=== PATIENT | male | born 1950 | race Caucasian/White ===

== ENCOUNTER 2024-05-04 07:29 | Observation (INO) ==
[~2024-05-04 07:29] MED LIST: Metoclopramide 5 MG/ML VIAL (10 mg) IV PRN; NS 0.45% 1000 ml BAG 1,000 ML IV SCH; Naloxone 0.4 mg VIAL 0.4 mg/ml 1 ml VIAL IV PRN; Ondansetron 4 mg VIAL 2 MG/ML 2 ml VIAL IV PRN; fentaNYL 100 mcg/2 ml 50 MCG/ML VIAL IV PRN
[2024-05-04] MEDS ORDERED: Famotidine IV 10 MG/ML 2 ml VIAL (20 mg) ONE (07:50)
[2024-05-04] MEDS ORDERED: Ondansetron 4 mg VIAL 2 MG/ML 2 ml VIAL ONE (07:54)
[2024-05-04] MEDS ORDERED: Lidocaine 2% PF 5 ML VIAL ONE (07:54)
[2024-05-04] MEDS ORDERED: fentaNYL 100 mcg/2 ml 50 MCG/ML VIAL ONE ×2 (07:54→10:21)
[2024-05-04] MEDS ORDERED: Propofol 10 MG/ML 20 ML BTL ONE ×2 (07:54→10:07)
[2024-05-04] MEDS ORDERED: Dexamethasone IV 4 MG/ML VIAL 1 ml VIAL ONE (07:54)
[2024-05-04] MEDS: Famotidine IV 10 MG/ML 2 ml VIAL (20 mg) IV SLOW PU ONE (07:59)
[2024-05-04 08:23] LABS: Rapid COVID-19 Molecular Undetected (Undetected)
[2024-05-04] MEDS ORDERED: Glycopyrrolate IV 0.2 MG/ML 1 ML VIAL ONE ×3 (08:50→09:54)
[2024-05-04] MEDS ORDERED: Ondansetron 4 mg VIAL 2 MG/ML 2 ml VIAL IV PRN (09:01)
[2024-05-04] MEDS ORDERED: Furosemide 20 mg/2 ml IV VIAL ONE (10:12)
[2024-05-04] MEDS: NS 0.9% 1000 ml BAG 1,000 ML IV SCH (13:14)
[2024-05-04] MEDS: Neomycin/Polym/Bacit TOP OINT 15 GM TOPICAL SCH (15:25)
[2024-05-04] MEDS: Acetaminophen IV 1 GM/100ML 1,000 MG/100 ML BAG IV ONE (16:54)
[2024-05-04] MEDS: Buffered Lidocaine 1% SYRIN 1 ml INTRADERM ONE (16:54)
[2024-05-04] MEDS: Ampicillin ADVAN 2 GM in NS 0.9% 100 ML 100 ML IVPB ONE (16:55)
[2024-05-04] MEDS: Gentamicin ADULT 410 MG in NS 0.9% 100 ml BAG 100 ML IVPB ONE (16:56)
[2024-05-04] MEDS: Magnesium Hydroxide LIQ 30 ML UDC PO SCH (21:34)
[2024-05-04] MEDS: Lactated Ringers 1000 ml BAG 1,000 ML IV SCH (23:34)
[2024-05-04] MEDS: Scopolamine 1 mg/72hr PATCH TRANSDERM ONE (23:35)
[2024-05-05 10:37] VITALS: BP 126/58
== END 2024-05-05 12:15 | disposition home or self-care (01) ==
LOC: SSU 07:29 → OR 07:29
PROVIDERS: ADMIT Urology; ATTEND Urology

== ENCOUNTER 2024-05-10 16:52 | Observation (INO) ==
[2024-05-10] MEDS: LACTATED RINGERS IV ONE (17:14)
[2024-05-10 17:18] LABS: ABS Lymphocytes 0.8 10^3/uL (1.0-4.8); ABS Neutrophils 14.7 10^3/uL (1.5-7.6); Eosinophil % 0.2 %; Hematocrit 43.5 % (38-53); Hemoglobin 14.9 g/dL (13.2-16.3); Lymphocyte % 4.6 %; Mean Corpuscular Hgb Conc 34.2 g/dL (31-36); Mean Corpuscular Volume 99.4 fL (80-97); Mean Platelet Volume 9.4 fL (7.5-11.2); Platelet Count 205 10^3/uL (150-450); Red Blood Count 4.38 10^6/uL (4.06-5.63); White Blood Count 16.5 10^3/uL (3.6-10.2)
[2024-05-10] MEDS: cefTRIAXone 1 gm/50 mL D5W 1 GM/50 ML BAG IV ONE (17:32)
[2024-05-10 17:33] LABS: Activated Partial Thrombo Time 29.5 seconds (26.0-38.0); INR 1.13 (0.85-1.14)
[2024-05-10] MEDS: Ondansetron 4 mg VIAL 2 MG/ML 2 ml VIAL IV ONE (17:41)
[2024-05-10 17:54] LABS: Albumin 3.9 g/dL (3.2-5.2); Albumin/Globulin Ratio 1.5 (1-3); C Reactive Protein 64.41 mg/L (<8.01); Calcium 10.1 mg/dL (8.6-10.3); Creatinine, Serum 1.47 mg/dL (0.67-1.17); Globulin 2.6 g/dL (2-4); Potassium 4.3 mmol/L (3.5-5.0); Total Protein 6.5 g/dL (6.4-8.9); eGFR CKD-EPI 49.7 (>60)
[2024-05-10 19:10] LABS: Urine Appearance Turbid; Urine Bilirubin Negative (Negative); Urine Blood 3+ (Negative); Urine Color Yellow; Urine Glucose Negative (Negative); Urine Ketones Negative (Negative); Urine Nitrite Negative (Negative); Urine Protein 2+ (>=100 mg/dL) (Negative); Urine Specific Gravity 1.022 (1.002-1.030); Urine Urobilinogen Negative (Negative); Urine pH 6.5 (5.0-8.0)
[2024-05-10 19:19] LABS: Urine Bacteria Absent /HPF (Absent); Urine Red Blood Cell 3+(>10/hpf) /HPF (0-Trace); Urine White Blood Cell 3+(>20/hpf) /HPF (0-Trace)
[2024-05-10 19:28] LABS: High Sensitivity Troponin 1 Hr 13 pg/mL (<20)
[2024-05-10] MEDS: Iodixanol 320 (CONTRAST) 100 ML SDV IV ONE (20:26)
[2024-05-11] MEDS: Albuterol/Ipratropium NEB.SOL (2.5/0.5 MG) 3 ML NEB.SOLN INH ONE (00:15)
[2024-05-11] MEDS ORDERED: Vancomycin per Pharmacy 1 EA NOTE FOLLOW UP SCH (01:00)
[2024-05-11] MEDS ORDERED: Zosyn per Pharmacy NOTE FOLLOW UP SCH (01:00)
[2024-05-11] MEDS: ZOSYN 3.375 GM x ONE DOSE over 30 miuntes IV (01:10)
[2024-05-11] MEDS: Vancomycin 1,500 MG in NS 0.9% 250 ml 250 ML IVPB ONE (03:10)
[2024-05-11] MEDS: ZOSYN 3.375 GM Q8H per EXTENDED INFUSION IV SCH ×2 (05:36→12:42)
[2024-05-11 06:13] LABS: ABS Basophils 0.1 10^3/uL (0.0-0.1); ABS Eosinophils 0.1 10^3/uL (0.0-0.5); ABS Monocytes 1.5 10^3/uL (0.0-1.1); ABS Neutrophils 11.8 10^3/uL (1.5-7.6); Eosinophil % 0.6 %; Hematocrit 40.1 % (38-53); Hemoglobin 13.7 g/dL (13.2-16.3); Lymphocyte % 7.2 %; Mean Corpuscular Hemoglobin 34.2 pg (27-33); Mean Corpuscular Hgb Conc 34.3 g/dL (31-36); Mean Corpuscular Volume 99.9 fL (80-97); Platelet Count 176 10^3/uL (150-450); Red Blood Count 4.01 10^6/uL (4.06-5.63); Red Cell Distribution Width 13.4 % (12-17); White Blood Count 14.4 10^3/uL (3.6-10.2)
[2024-05-11 06:45] LABS: Calcium 9.4 mg/dL (8.6-10.3); Creatinine, Serum 1.36 mg/dL (0.67-1.17); Potassium 4.1 mmol/L (3.5-5.0); eGFR CKD-EPI 54.6 (>60)
[2024-05-11] MEDS ORDERED: Vancomycin 750 MG in NS 0.9% 250 ML IVPB SCH (15:00)
[2024-05-11] MEDS: Vancomycin 750 MG in NS 0.9% 250 ML IVPB SCH (15:18)
[2024-05-11] MEDS: Enoxaparin 40 MG/0.4 ML SYR SUBCUT SCH (21:08)
[2024-05-12 08:57] LABS: ABS Eosinophils 0.4 10^3/uL (0.0-0.5); ABS Lymphocytes 1.5 10^3/uL (1.0-4.8); ABS Monocytes 1.5 10^3/uL (0.0-1.1); ABS Neutrophils 4.8 10^3/uL (1.5-7.6); ABS Nucleated RBC 0.01 10^3/ul; Eosinophil % 5.1 %; Hemoglobin 13.5 g/dL (13.2-16.3); Lymphocyte % 17.8 %; Mean Corpuscular Hemoglobin 34.4 pg (27-33); Mean Corpuscular Hgb Conc 34.6 g/dL (31-36); Mean Corpuscular Volume 99.2 fL (80-97); Mean Platelet Volume 9.7 fL (7.5-11.2); Nucleated Red Blood Cells % 0.1 %/100WBC (0.0-0.8); Platelet Count 186 10^3/uL (150-450); Red Blood Count 3.93 10^6/uL (4.06-5.63); Red Cell Distribution Width 13.3 % (12-17); White Blood Count 8.3 10^3/uL (3.6-10.2)
[2024-05-12 09:25] LABS: C Reactive Protein 63.98 mg/L (<8.01); Calcium 9.2 mg/dL (8.6-10.3); Creatinine, Serum 1.35 mg/dL (0.67-1.17); Potassium 4.1 mmol/L (3.5-5.0); eGFR CKD-EPI 55.1 (>60)
[2024-05-12] MEDS: Vancomycin Trough Check NOTE FOLLOW UP ONE (16:55)
[2024-05-13 06:12] LABS: Creatinine, Serum 1.33 mg/dL (0.67-1.17); eGFR CKD-EPI 56.1 (>60)
[2024-05-13 09:56] VITALS: BP 100/61
[2024-05-15] MEDS ORDERED: Vancomycin Trough Check NOTE FOLLOW UP ONE (14:30)
== END 2024-05-13 11:15 | disposition home or self-care (01) ==
LOC: ED 16:52 → EDHOLD 16:52 → SUATTDRO 23:15 → SSU 05-11 08:25
PROVIDERS: ADMIT Internal Medicine; ATTEND Internal Medicine